=== PATIENT | male | born 1940 | race Caucasian/White ===

== ENCOUNTER 2016-09-12 10:19 | Emergency (ER) | payer OTHER ==
[~2016-09-12] VITALS: Ht 170.2 cm; Wt 72.7 kg
[~2016-09-12 10:19] MED LIST: ALDACTONE25 MG PO; ALDACTONE50 MG PO; ASPIRIN325 MG; ASPIRIN325 MG PO; ATENOLOL50 MG PO; ENDOCET 5-3251 EACH PO; Ecotrin PO; LEVOTHYROXINE112 MCG PO; LIBRIUM25 MG PO; Levothroid,Synthroid PO; Maalox, Mylanta PO; Motrin PO; NEXIUM40 MG PO; NITROGLYCERIN0.4 MG SL; NITROSTAT,NITR0.4 M1 SL; NITROSTAT0.4 MG SL; NORVASC10 M1; NORVASC2.5 MG PO; NORVASC5 MG PO; Normal Saline,NaCl 0 IV; Norvasc PO; PLAVIX75 MG PO; PRILOSEC20 MG PO; PROTONIX40 MG PO; SALINE FLUSH 5 M5 ML IV; ST. JOSEPH ASPI81 MG PO; SYNTHROID112 MCG; TENORMIN100 MG; THERAGRAN1 TABLET PO; THIAMINE,VITAM100 MG PO; Tenormin PO; Tylenol Regular Stre PO; morphine Sulfate IV
[2016-09-12 12:31] VITALS: BP 141/76
== END 2016-09-12 12:33 | disposition home or self-care (01) ==
LOC: EME 10:19
DX: D23.12 Other benign neoplasm of skin of left eyelid, including canthus (principal); I10 Essential (primary) hypertension; I25.2 Old myocardial infarction; K21.9 Gastro-esophageal reflux disease without esophagitis; I25.10 Atherosclerotic heart disease of native coronary artery without angina pectoris; C22.9 Malignant neoplasm of liver, not specified as primary or secondary; Z95.1 Presence of aortocoronary bypass graft; Z98.61 Coronary angioplasty status; Z96.642 Presence of left artificial hip joint; Z87.891 Personal history of nicotine dependence; Z79.82 Long term (current) use of aspirin
CPT/HCPCS: 99281; 99284

== ENCOUNTER 2017-01-16 02:28 | Inpatient (IN) | payer OTHER ==
[2017-01-16] VITALS (16 sets, daily range): BP systolic 114–157; BP diastolic 56–77
[~2017-01-16] VITALS: Ht 170.2 cm; Wt 66.1 kg
[2017-01-16 02:58] LABS: HEMATOCRIT 24.3 % (38.0-50.0); MCH 27.3 PG (29.0-34.0); MCHC 32.1 G/DL (30.0-36.0); MEAN PLAT.VOLUME 9.4 uM^3 (9.0-12.4); PLATELET COUNT 153 K/uL (156-360); RBC DIS.WIDTH-CV 15.2 % (11.8-14.6); RBC DIS.WIDTH-SD 47.4 % (39-53); RED BLOOD COUNT 2.86 M/uL (4.00-5.50); WHITE BLOOD COUNT 4.9 K/uL (4.1-10.2)
[2017-01-16 03:09] LABS: CHLORIDE 112 mEq/L (99-109); SODIUM 137 mEq/L (136-147)
[2017-01-16 03:10] LABS: GLUCOSE 100 mg/dL (70-99)
[2017-01-16 03:12] LABS: ANION GAP 7 MEQ/L (2-14)
[2017-01-16 03:14] LABS: GFR ESTIMATE (CALCULATED) 42 mL/min/
[2017-01-16 03:15] LABS: UREA NITROGEN (BUN) 24 mg/dL (9-23)
[2017-01-16 03:23] LABS: TROP-I INTERPRETATION NEGATIVE; TROPONIN-I 0.02 ng/mL (0.0-0.30)
[2017-01-16] MEDS ORDERED: ROSUVASTATIN CAL5 MG PO (04:37)
[2017-01-16] MEDS ORDERED: IMDUR30 MG PO (04:41)
[2017-01-16] MEDS ORDERED: FUROSEMIDE20 MG PO (04:42)
[2017-01-16 04:46] LABS: TOTAL BILIRUBIN 0.9 mg/dL (0.0-1.0)
[2017-01-16 04:47] LABS: ALKALINE PHOSPHATASE 89 IU/L (3-129)
[2017-01-16 04:49] LABS: DIRECT BILIRUBIN 0.5 mg/dL (0.0-0.3)
[2017-01-16 04:55] LABS: INTER. NORMALIZED RATIO 1.3; PROTHROMBIN TIME 13.2 (9.2-11.2); PTT 29.5 (25-32)
[2017-01-16 11:12] LABS: HDL CHOLESTEROL 19 MG/DL (Desirable>=40); LDL CHOLESTEROL 48 mg/dL (Desirable<100); NON-HDL CHOLESTEROL 63 mg/dL (Desirable<160); TOTAL CHOLESTEROL 82 mg/dL (Desirable<200); TRIGLYCERIDES 74 MG/DL (Normal: <150); TROP-I INTERPRETATION NEGATIVE; TROPONIN-I 0.03 ng/mL (0.0-0.30)
[2017-01-16 15:30] LABS: TROP-I INTERPRETATION NEGATIVE; TROPONIN-I 0.04 ng/mL (0.0-0.30)
[2017-01-16 20:04] LABS: HEMATOCRIT 31.2 % (38.0-50.0); MCV 84.3 FL (86-99)
[2017-01-17] VITALS (10 sets, daily range): BP systolic 94–161; BP diastolic 50–70
[2017-01-17 08:15] LABS: HEMATOCRIT 33.1 % (38.0-50.0); MCV 85.1 FL (86-99)
[2017-01-17 08:39] LABS: ANION GAP 8 MEQ/L (2-14); CHLORIDE 107 MEQ/L (99-109); GFR ESTIMATE (CALCULATED) 45 mL/min/; GLUCOSE 92 mg/dL (70-99); POTASSIUM 3.7 MEQ/L (3.7-5.4); SAMPLE HEMOLYSIS CHECK 0; SAMPLE ICTERIC CHECK 0; SAMPLE LIPEMIA CHECK 0; SODIUM 135 MEQ/L (136-147); UREA NITROGEN (BUN) 24 mg/dL (9-23)
[2017-01-17 20:06] LABS: HEMATOCRIT 33.4 % (38.0-50.0); MCV 84.8 FL (86-99)
[2017-01-18 05:32] VITALS: BP 106/57
[2017-01-18 07:20] VITALS: BP 117/57
[2017-01-18 07:46] LABS: HEMATOCRIT 31.2 % (38.0-50.0); MCH 28.1 PG (29.0-34.0); MCV 85.2 FL (86-99); MEAN PLAT.VOLUME 9.6 uM^3 (9.0-12.4); PLATELET COUNT 154 K/uL (156-360); RBC DIS.WIDTH-CV 14.7 % (11.8-14.6); RBC DIS.WIDTH-SD 46.1 % (39-53); WHITE BLOOD COUNT 4.1 K/uL (4.1-10.2)
[2017-01-18 07:54] LABS: RED BLOOD COUNT 3.66 M/uL (4.00-5.50)
[2017-01-18 08:21] LABS: ANION GAP 7 MEQ/L (2-14); CHLORIDE 107 MEQ/L (99-109); GFR ESTIMATE (CALCULATED) 45 mL/min/; GLUCOSE 80 mg/dL (70-99); POTASSIUM 3.6 MEQ/L (3.7-5.4); SAMPLE HEMOLYSIS CHECK 0; SAMPLE ICTERIC CHECK 0; SAMPLE LIPEMIA CHECK 0; SODIUM 136 MEQ/L (136-147); UREA NITROGEN (BUN) 24 mg/dL (9-23)
[2017-01-18 09:50] LABS: POC NON-PRINT COM 1 ND
[2017-01-18 11:34] VITALS: BP 132/63
[2017-01-18 15:15] VITALS: BP 162/70
[2017-01-18 20:15] VITALS: BP 140/64
[2017-01-19 01:09] VITALS: BP 102/50
[2017-01-19 05:43] VITALS: BP 116/56
[2017-01-19 08:06] VITALS: BP 111/64
[2017-01-19] MEDS ORDERED: IMDUR30 MG PO (08:46)
[2017-01-19] MEDS ORDERED: PRILOSEC20 MG PO (08:47)
[2017-01-19] MEDS ORDERED: NADOLOL40 MG PO (13:24)
[2017-01-19] MEDS ORDERED: PROTONIX40 MG PO (13:25)
== END 2017-01-19 14:18 | disposition home or self-care (01) | DRG 369 ==
LOC: EME 02:28 → EDOF 03:33 → 4EAST 04:19 → EDOF 04:19 → 4EAST 06:26
PROVIDERS: Emergency Medicine; Internal Medicine; Physician Assistant Medical
PROC: 30233N1 Transfusion of Nonautologous Red Blood Cells into Peripheral Vein, Percutaneous Approach (ICD-10-PCS; principal; 2017-01-16)
PROC: 06L34CZ Occlusion of Esophageal Vein with Extraluminal Device, Percutaneous Endoscopic Approach (ICD-10-PCS; 2017-01-18)
DX: I85.01 Esophageal varices with bleeding (principal); I25.110 Atherosclerotic heart disease of native coronary artery with unstable angina pectoris; D62 Acute posthemorrhagic anemia; I24.9 Acute ischemic heart disease, unspecified; I50.22 Chronic systolic (congestive) heart failure; E11.22 Type 2 diabetes mellitus with diabetic chronic kidney disease; N17.9 Acute kidney failure, unspecified; R07.9 Chest pain, unspecified; E24.9 Cushing's syndrome, unspecified; C22.0 Liver cell carcinoma; B19.20 Unspecified viral hepatitis C without hepatic coma; I71.4 Abdominal aortic aneurysm, without rupture; I10 Essential (primary) hypertension; E78.5 Hyperlipidemia, unspecified; K21.9 Gastro-esophageal reflux disease without esophagitis; E03.9 Hypothyroidism, unspecified; I12.9 Hypertensive chronic kidney disease with stage 1 through stage 4 chronic kidney disease, or unspecified chronic kidney disease; N18.3 Chronic kidney disease, stage 3 (moderate); K44.9 Diaphragmatic hernia without obstruction or gangrene; I25.2 Old myocardial infarction; Z95.1 Presence of aortocoronary bypass graft; Z90.49 Acquired absence of other specified parts of digestive tract; Z95.5 Presence of coronary angioplasty implant and graft; Z79.01 Long term (current) use of anticoagulants; Z87.891 Personal history of nicotine dependence; Z85.05 Personal history of malignant neoplasm of liver
CPT/HCPCS: 36600; 71020; 74230; 80048; 80061; 80076; 82272; 82803; 83880; 84484; 85014; 85018; 85027; 85610; 85730; 86900; 86901; 86920; 92611 GN; 93005; 99281; 99285; C9113; J1940; P9016

== ENCOUNTER → 2017-03-02 | Outpatient (CLI) | payer OTHER ==
[~2017-03-02] VITALS: Ht 170.2 cm; Wt 56.2 kg
[~2017-03-02] MED LIST changes: +CORGARD40 MG PO; +FUROSEMIDE20 MG PO; +IMDUR30 MG PO; +LASIX20 MG PO; +LEVO-T112 MCG PO; +NADOLOL40 MG PO; +ROSUVASTATIN CAL5 MG PO
[2017-03-02 09:59] LABS: BASOPHIL COUNT 0.1 K/uL (0-0.1); EOSINOPHIL (%) 5.9 % (0-5); EOSINOPHIL COUNT 0.4 K/uL (0-0.3); HEMATOCRIT 31.2 % (38.0-50.0); IMMATURE GRANULOCYTE (%) 0.2 % (0.0-0.7); INSTRUMENT ABS NEUTROPHIL CT 2.9 K/uL; LYMPHOCYTE COUNT 1.8 K/uL (1.0-2.8); MCH 28.3 PG (29.0-34.0); MCV 85.7 FL (86-99); MEAN PLAT.VOLUME 9.3 uM^3 (9.0-12.4); MONOCYTE (%) 14.6 % (3-12); MONOCYTE COUNT 0.9 K/uL (0-0.8); NEUTROPHIL COUNT 2.9 K/uL (1.8-6.4); PLATELET COUNT 179 K/uL (156-360); RBC DIS.WIDTH-CV 15.6 % (11.8-14.6); RBC DIS.WIDTH-SD 48.9 % (39-53); RED BLOOD COUNT 3.64 M/uL (4.00-5.50)
[2017-03-02 10:10] LABS: INTER. NORMALIZED RATIO 1.2; PROTHROMBIN TIME 12.6 (9.2-11.2); PTT 30.3 (25-32)
== END | disposition home or self-care (01) ==
LOC: AMB 09:31
PROVIDERS: Anesthesiology
PROC: 0DJ08ZZ Inspection of Upper Intestinal Tract, Via Natural or Artificial Opening Endoscopic (ICD-10-PCS; principal; 2017-03-02)
DX: I85.00 Esophageal varices without bleeding (principal); C22.9 Malignant neoplasm of liver, not specified as primary or secondary; B19.20 Unspecified viral hepatitis C without hepatic coma; J44.9 Chronic obstructive pulmonary disease, unspecified; Z79.02 Long term (current) use of antithrombotics/antiplatelets; Z95.1 Presence of aortocoronary bypass graft; Z79.82 Long term (current) use of aspirin; Z82.49 Family history of ischemic heart disease and other diseases of the circulatory system; Z83.3 Family history of diabetes mellitus; Z87.891 Personal history of nicotine dependence
CPT/HCPCS: 85025; 85610; 85730; 93005

== ENCOUNTER 2017-05-15 15:08 | Observation (INO) | payer OTHER ==
[~2017-05-15] VITALS: Ht 172.7 cm; Wt 64.5 kg
[2017-05-15 16:09] LABS: HEMATOCRIT 23.4 % (38.0-50.0); MCH 27.5 PG (29.0-34.0); MCHC 32.9 G/DL (30.0-36.0); MCV 83.6 FL (86-99); MEAN PLAT.VOLUME 9.7 uM^3 (9.0-12.4); PLATELET COUNT 133 K/uL (156-360); RBC DIS.WIDTH-CV 16.2 % (11.8-14.6); RBC DIS.WIDTH-SD 49.1 % (39-53)
[2017-05-15 16:19] LABS: CHLORIDE 112 mEq/L (99-109); POTASSIUM 3.7 mEq/L (3.7-5.4); SODIUM 139 mEq/L (136-147)
[2017-05-15 16:20] LABS: GLUCOSE 112 mg/dL (70-99)
[2017-05-15 16:22] LABS: ANION GAP 9 MEQ/L (2-14)
[2017-05-15 16:24] LABS: GFR ESTIMATE (CALCULATED) 57 mL/min/
[2017-05-15 16:25] LABS: UREA NITROGEN (BUN) 21 mg/dL (9-23)
[2017-05-15 16:29] LABS: TROP-I INTERPRETATION NEGATIVE; TROPONIN-I 0.03 ng/mL (0.0-0.30)
[2017-05-15] MEDS ORDERED: PRILOSEC20 MG PO (18:51)
[2017-05-15] MEDS ORDERED: LORAZEPAM0.5 MG PO (18:51)
[2017-05-15] MEDS ORDERED: COLACE100 MG PO (18:51)
[2017-05-15 22:20] VITALS: BP 131/69
[2017-05-16] VITALS (11 sets, daily range): BP systolic 96–165; BP diastolic 55–73
[2017-05-16 00:53] LABS: TROP-I INTERPRETATION NEGATIVE; TROPONIN-I 0.04 ng/mL (0.0-0.30)
[2017-05-16 05:59] LABS: TROP-I INTERPRETATION NEGATIVE; TROPONIN-I 0.03 ng/mL (0.0-0.30)
[2017-05-16 06:03] LABS: ANION GAP 7 MEQ/L (2-14); CHLORIDE 108 MEQ/L (99-109); GFR ESTIMATE (CALCULATED) > 59 mL/min/; GLUCOSE 97 mg/dL (70-99); SAMPLE HEMOLYSIS CHECK 0; SAMPLE ICTERIC CHECK 0; SAMPLE LIPEMIA CHECK 0; SODIUM 137 MEQ/L (136-147); UREA NITROGEN (BUN) 17 mg/dL (9-23)
[2017-05-16 13:03] LABS: HEMATOCRIT 35.5 % (38.0-50.0); MCH 28.8 PG (29.0-34.0); MCHC 33.8 G/DL (30.0-36.0); MCV 85.3 FL (86-99); MEAN PLAT.VOLUME 9.5 uM^3 (9.0-12.4); PLATELET COUNT 159 K/uL (156-360); RBC DIS.WIDTH-CV 15.8 % (11.8-14.6); RBC DIS.WIDTH-SD 48.5 % (39-53); WHITE BLOOD COUNT 5.9 K/uL (4.1-10.2)
[2017-05-16 13:04] LABS: RED BLOOD COUNT 4.16 M/uL (4.00-5.50)
== END 2017-05-16 15:52 | disposition home or self-care (01) ==
LOC: EME 15:08 → 5WEST 20:46 → EDOF 20:46 → ENRESERV 20:47 → 5WEST 21:57
PROVIDERS: Emergency Medicine; Hospitalist
PROC: 30253N1 (ICD-10-PCS; principal; 2017-05-15)
DX: R07.9 Chest pain, unspecified (principal); D64.9 Anemia, unspecified; I13.0 Hypertensive heart and chronic kidney disease with heart failure and stage 1 through stage 4 chronic kidney disease, or unspecified chronic kidney disease; I50.22 Chronic systolic (congestive) heart failure; N18.3 Chronic kidney disease, stage 3 (moderate); C22.0 Liver cell carcinoma; I25.10 Atherosclerotic heart disease of native coronary artery without angina pectoris; B19.20 Unspecified viral hepatitis C without hepatic coma; Z87.19 Personal history of other diseases of the digestive system; Z92.21 Personal history of antineoplastic chemotherapy; I25.2 Old myocardial infarction; I71.4 Abdominal aortic aneurysm, without rupture; E78.5 Hyperlipidemia, unspecified; E24.9 Cushing's syndrome, unspecified; K21.9 Gastro-esophageal reflux disease without esophagitis; E03.9 Hypothyroidism, unspecified; Z95.5 Presence of coronary angioplasty implant and graft; Z98.890 Other specified postprocedural states; I70.1 Atherosclerosis of renal artery; Z90.49 Acquired absence of other specified parts of digestive tract; Z79.82 Long term (current) use of aspirin; Z87.891 Personal history of nicotine dependence; Z82.49 Family history of ischemic heart disease and other diseases of the circulatory system; Z88.8 Allergy status to other drugs, medicaments and biological substances
CPT/HCPCS: 71010; 80048; 84484; 85027; 86850; 86900; 86901; 86920; 93005; 99281; 99285; C9113; G0378; J1650; J1940; J2270; J2354; P9016

== ENCOUNTER 2017-06-22 19:30 | Inpatient (IN) | payer OTHER ==
[~2017-06-22] VITALS: Ht 170.2 cm; Wt 63.4 kg
[~2017-06-22 19:30] MED LIST changes: +COLACE100 MG PO; +LEVO-T100 MCG PO; -LEVO-T112 MCG PO; +LORAZEPAM0.5 MG PO; +OXAYDO5 MG PO
[2017-06-22 20:51] LABS: HEMATOCRIT 32.8 % (38.0-50.0); MCH 28.8 PG (29.0-34.0); MCHC 33.2 G/DL (30.0-36.0); MCV 86.5 FL (86-99); MEAN PLAT.VOLUME 9.9 uM^3 (9.0-12.4); PLATELET COUNT 163 K/uL (156-360); RBC DIS.WIDTH-CV 16.6 % (11.8-14.6); RBC DIS.WIDTH-SD 52.4 % (39-53); RED BLOOD COUNT 3.79 M/uL (4.00-5.50); WHITE BLOOD COUNT 12.9 K/uL (4.1-10.2)
[2017-06-22 21:03] LABS: CHLORIDE 108 mEq/L (99-109); POTASSIUM 3.7 mEq/L (3.7-5.4); SODIUM 135 mEq/L (136-147)
[2017-06-22 21:05] LABS: GLUCOSE 121 mg/dL (70-99)
[2017-06-22 21:07] LABS: ANION GAP 9 MEQ/L (2-14)
[2017-06-22 21:09] LABS: GFR ESTIMATE (CALCULATED) 48 mL/min/
[2017-06-22 21:10] LABS: UREA NITROGEN (BUN) 21 mg/dL (9-23)
[2017-06-22 21:18] LABS: TROP-I INTERPRETATION NEGATIVE; TROPONIN-I 0.04 ng/mL (0.0-0.30)
[2017-06-22 22:23] LABS: INFLUENZA A VIRAL ANTIGEN NEGATIVE; INFLUENZA B VIRAL ANTIGEN NEGATIVE
[2017-06-22] MEDS ORDERED: ASPERCREME 1035.4 GM TP (22:56)
[2017-06-23 00:46] LABS: ADD MIUA? YES; BILIRUBIN NEGATIVE; BLOOD SMALL; COLOR YELLOW ((YELLOW)); GLUCOSE (STRIP) NEGATIVE; KETONES NEGATIVE; LEUKOCYTES NEGATIVE; NITRITE NEGATIVE; PROTEIN (STRIP) 100; SPECIFIC GRAVITY 1.023 (1.000-1.030)
[2017-06-23 00:53] LABS: BACTERIA NONE SEEN /HPF; EPITHELIAL CELLS RARE /HPF; MUCUS TRACE /LPF; WHITE BLOOD CELLS 0-5 /HPF (0-5)
[2017-06-23 01:37] VITALS: BP 109/59
[2017-06-23 06:20] LABS: EOSINOPHIL (%) 1.4 % (0-5); EOSINOPHIL COUNT 0.2 K/uL (0-0.3); HEMATOCRIT 25.5 % (38.0-50.0); IMMATURE GRANULOCYTE (%) 0.3 % (0.0-0.7); INSTRUMENT ABS NEUTROPHIL CT 8.3 K/uL; LYMPHOCYTE COUNT 2.2 K/uL (1.0-2.8); MCH 29.1 PG (29.0-34.0); MCHC 33.3 G/DL (30.0-36.0); MCV 87.3 FL (86-99); MEAN PLAT.VOLUME 9.8 uM^3 (9.0-12.4); MONOCYTE (%) 7.8 % (3-12); MONOCYTE COUNT 0.9 K/uL (0-0.8); NEUTROPHIL (%) 71.2 % (45-76); NEUTROPHIL COUNT 8.3 K/uL (1.8-6.4); PLATELET COUNT 117 K/uL (156-360); RBC DIS.WIDTH-CV 16.8 % (11.8-14.6); RBC DIS.WIDTH-SD 53.6 % (39-53); TROP-I INTERPRETATION NEGATIVE; TROPONIN-I 0.07 ng/mL (0.0-0.30); WHITE BLOOD COUNT 11.7 K/uL (4.1-10.2)
[2017-06-23 06:27] LABS: RED BLOOD COUNT 2.92 M/uL (4.00-5.50)
[2017-06-23 06:30] LABS: ALKALINE PHOSPHATASE 67 IU/L (3-129); ANION GAP 8 MEQ/L (2-14); CHLORIDE 110 MEQ/L (99-109); GFR ESTIMATE (CALCULATED) 57 mL/min/; MAGNESIUM 1.5 mg/dl (1.3-2.7); POTASSIUM 3.6 MEQ/L (3.7-5.4); SAMPLE HEMOLYSIS CHECK 0; SAMPLE ICTERIC CHECK 0; SAMPLE LIPEMIA CHECK 0; SODIUM 137 MEQ/L (136-147); TOTAL BILIRUBIN 1.4 MG/DL (0.0-1.0); UREA NITROGEN (BUN) 22 mg/dL (9-23)
[2017-06-23 06:34] LABS: GLUCOSE 85 mg/dL (70-99)
[2017-06-23 07:49] VITALS: BP 121/61
[2017-06-23 12:17] VITALS: BP 127/60
[2017-06-23 15:16] VITALS: BP 109/57
[2017-06-23 22:18] VITALS: BP 116/59
[2017-06-24 00:28] VITALS: BP 118/63
[2017-06-24 04:20] VITALS: BP 116/59
[2017-06-24 05:35] LABS: HEMATOCRIT 25.6 % (38.0-50.0); MCH 28.6 PG (29.0-34.0); MCHC 32.8 G/DL (30.0-36.0); MCV 87.1 FL (86-99); MEAN PLAT.VOLUME 9.6 uM^3 (9.0-12.4); PLATELET COUNT 112 K/uL (156-360); RBC DIS.WIDTH-CV 16.7 % (11.8-14.6); RBC DIS.WIDTH-SD 53.3 % (39-53); RED BLOOD COUNT 2.94 M/uL (4.00-5.50); WHITE BLOOD COUNT 6.6 K/uL (4.1-10.2)
[2017-06-24 06:02] LABS: ANION GAP 7 MEQ/L (2-14); CHLORIDE 109 MEQ/L (99-109); GFR ESTIMATE (CALCULATED) > 59 mL/min/; GLUCOSE 80 mg/dL (70-99); POTASSIUM 3.4 MEQ/L (3.7-5.4); SAMPLE HEMOLYSIS CHECK 0; SAMPLE ICTERIC CHECK 0; SAMPLE LIPEMIA CHECK 0; SODIUM 135 MEQ/L (136-147); UREA NITROGEN (BUN) 18 mg/dL (9-23)
[2017-06-24 07:36] VITALS: BP 166/74
[2017-06-24] MEDS ORDERED: ACIDOPHILUS LA1 EAC1 PO (13:06)
[2017-06-24] MEDS ORDERED: AUGMENTIN875 MG PO (13:06)
== END 2017-06-24 14:06 | disposition home or self-care (01) | DRG 205 ==
LOC: EME 19:30 → EDOF 23:57 → 5EAST 23:57 → ENRESERV 06-23 → 5EAST 06-23 01:24
PROVIDERS: Family Medicine; Physician Assistant Medical
DX: J95.89 Other postprocedural complications and disorders of respiratory system, not elsewhere classified (principal); J69.0 Pneumonitis due to inhalation of food and vomit; A41.9 Sepsis, unspecified organism; I25.10 Atherosclerotic heart disease of native coronary artery without angina pectoris; Y92.239 Unspecified place in hospital as the place of occurrence of the external cause; Y83.8 Other surgical procedures as the cause of abnormal reaction of the patient, or of later complication, without mention of misadventure at the time of the procedure; G89.29 Other chronic pain; I50.9 Heart failure, unspecified; I11.0 Hypertensive heart disease with heart failure; Z95.5 Presence of coronary angioplasty implant and graft; I25.2 Old myocardial infarction; E78.5 Hyperlipidemia, unspecified; K21.9 Gastro-esophageal reflux disease without esophagitis; E03.9 Hypothyroidism, unspecified; E24.9 Cushing's syndrome, unspecified; Z96.642 Presence of left artificial hip joint; M19.90 Unspecified osteoarthritis, unspecified site; Z87.891 Personal history of nicotine dependence; E87.2 Acidosis; C22.0 Liver cell carcinoma; I73.9 Peripheral vascular disease, unspecified; D64.9 Anemia, unspecified; F03.90 Unspecified dementia, unspecified severity, without behavioral disturbance, psychotic disturbance, mood disturbance, and anxiety; J98.11 Atelectasis; K59.00 Constipation, unspecified; I71.4 Abdominal aortic aneurysm, without rupture; K74.69 Other cirrhosis of liver; B18.2 Chronic viral hepatitis C
CPT/HCPCS: 70450; 71020; 74176; 80048; 80053; 81003; 83605; 83690; 83735; 84100; 84484; 85025; 85027; 87040; 87502; 93005; 99281; 99285; J0295; J1956; J2543; J3370; J7030; J7040; J7050; J7120

== ENCOUNTER 2017-08-01 18:07 | Inpatient (IN) | payer OTHER ==
[~2017-08-01] VITALS: Ht 170.2 cm; Wt 59.0 kg
[~2017-08-01 18:07] MED LIST changes: +ACIDOPHILUS LA1 EAC1 PO; +ASPERCREME 1035.4 GM TP; +AUGMENTIN875 MG PO
[2017-08-01 18:47] LABS: HEMATOCRIT 36.1 % (38.0-50.0); MCH 28.1 PG (29.0-34.0); MCHC 32.7 G/DL (30.0-36.0); PLATELET COUNT 157 K/uL (156-360); RBC DIS.WIDTH-CV 15.9 % (11.8-14.6); RBC DIS.WIDTH-SD 49.1 % (39-53); WHITE BLOOD COUNT 7.6 K/uL (4.1-10.2)
[2017-08-01 18:58] LABS: CHLORIDE 103 mEq/L (99-109); POTASSIUM 3.7 mEq/L (3.7-5.4); SODIUM 133 mEq/L (136-147)
[2017-08-01 19:00] LABS: GLUCOSE 98 mg/dL (70-99)
[2017-08-01 19:01] LABS: ANION GAP 7 MEQ/L (2-14)
[2017-08-01 19:04] LABS: GFR ESTIMATE (CALCULATED) > 59 mL/min/ (58.99-99999)
[2017-08-01 19:05] LABS: UREA NITROGEN (BUN) 12 mg/dL (9-23)
[2017-08-01] MEDS ORDERED: FENTANYL1 EAC4 TD (21:39)
[2017-08-01] MEDS ORDERED: MIRTAZAPINE7.5 MG PO (21:39)
[2017-08-02] VITALS (8 sets, daily range): BP systolic 132–194; BP diastolic 61–82
[2017-08-02 00:49] LABS: ADD MIUA? YES; BILIRUBIN NEGATIVE; BLOOD SMALL; COLOR YELLOW ((YELLOW)); GLUCOSE (STRIP) NEGATIVE; KETONES 5; LEUKOCYTES NEGATIVE; NITRITE NEGATIVE; PROTEIN (STRIP) 100; SPECIFIC GRAVITY 1.017 (1.000-1.030)
[2017-08-02 00:55] LABS: BACTERIA NONE SEEN /HPF; EPITHELIAL CELLS NONE SEEN /HPF; MUCUS TRACE /LPF; UCUL ADDED? NO; WHITE BLOOD CELLS 0-5 /HPF (0-5)
[2017-08-02 01:24] LABS: TROP-I INTERPRETATION NEGATIVE; TROPONIN-I 0.03 ng/mL (0.0-0.30)
[2017-08-02 05:28] LABS: HEMATOCRIT 30.7 % (38.0-50.0); MCH 27.5 PG (29.0-34.0); MCHC 32.9 G/DL (30.0-36.0); MCV 83.7 FL (86-99); MEAN PLAT.VOLUME 9.1 uM^3 (9.0-12.4); PLATELET COUNT 121 K/uL (156-360); RBC DIS.WIDTH-CV 15.8 % (11.8-14.6); RBC DIS.WIDTH-SD 47.7 % (39-53); RED BLOOD COUNT 3.67 M/uL (4.00-5.50); WHITE BLOOD COUNT 6.3 K/uL (4.1-10.2)
[2017-08-02 05:31] LABS: INTER. NORMALIZED RATIO 1.4; PROTHROMBIN TIME 15.7 SEC (10.2-12.9)
[2017-08-02 05:34] LABS: PTT 32.7 SEC (25-37)
[2017-08-02 05:42] LABS: CHLORIDE 106 mEq/L (99-109); POTASSIUM 3.6 mEq/L (3.7-5.4); SODIUM 134 mEq/L (136-147)
[2017-08-02 05:43] LABS: GLUCOSE 98 mg/dL (70-99)
[2017-08-02 05:45] LABS: ANION GAP 7 MEQ/L (2-14)
[2017-08-02 05:47] LABS: GFR ESTIMATE (CALCULATED) > 59 mL/min/ (58.99-99999)
[2017-08-02 05:48] LABS: TROP-I INTERPRETATION NEGATIVE; TROPONIN-I 0.03 ng/mL (0.0-0.30); UREA NITROGEN (BUN) 12 mg/dL (9-23)
[2017-08-02 12:33] LABS: TROP-I INTERPRETATION NEGATIVE; TROPONIN-I 0.02 ng/mL (0.0-0.30)
[2017-08-03 00:31] VITALS: BP 138/67
[2017-08-03 03:57] VITALS: BP 151/71
[2017-08-03 06:49] LABS: ALKALINE PHOSPHATASE 61 IU/L (3-129); ANION GAP 8 MEQ/L (2-14); CHLORIDE 104 MEQ/L (99-109); GFR ESTIMATE (CALCULATED) > 59 mL/min/ (58.99-99999); GLUCOSE 84 mg/dL (70-99); POTASSIUM 3.5 MEQ/L (3.7-5.4); SAMPLE HEMOLYSIS CHECK 0; SAMPLE ICTERIC CHECK 0; SAMPLE LIPEMIA CHECK 0; SODIUM 134 MEQ/L (136-147); TOTAL BILIRUBIN 1.4 MG/DL (0.0-1.0); UREA NITROGEN (BUN) 13 mg/dL (9-23)
[2017-08-03 07:45] VITALS: BP 149/71
[2017-08-03 12:07] VITALS: BP 135/69
[2017-08-03 16:24] VITALS: BP 157/71
[2017-08-03 17:29] LABS: BASOPHIL COUNT 0.1 K/uL (0-0.1); EOSINOPHIL (%) 9.4 % (0-5); EOSINOPHIL COUNT 0.6 K/uL (0-0.3); IMMATURE GRANULOCYTE (%) 0.3 % (0.0-0.7); INSTRUMENT ABS NEUTROPHIL CT 2.9 K/uL; LYMPHOCYTE COUNT 1.6 K/uL (1.0-2.8); MCH 27.1 PG (29.0-34.0); MCHC 32.3 G/DL (30.0-36.0); MEAN PLAT.VOLUME 9.2 uM^3 (9.0-12.4); MONOCYTE (%) 13.4 % (3-12); MONOCYTE COUNT 0.8 K/uL (0-0.8); NEUTROPHIL (%) 48.3 % (45-76); NEUTROPHIL COUNT 2.9 K/uL (1.8-6.4); PLATELET COUNT 141 K/uL (156-360); RBC DIS.WIDTH-CV 15.8 % (11.8-14.6); RBC DIS.WIDTH-SD 47.9 % (39-53); RED BLOOD COUNT 3.69 M/uL (4.00-5.50)
[2017-08-03 19:22] VITALS: BP 135/75
[2017-08-04 00:02] VITALS: BP 160/85
[2017-08-04 04:07] VITALS: BP 175/81
[2017-08-04 08:00] VITALS: BP 163/79
[2017-08-04 12:00] VITALS: BP 154/79
[2017-08-04 16:00] VITALS: BP 153/80
[2017-08-04 19:26] VITALS: BP 163/72
[2017-08-05 00:15] VITALS: BP 176/72
[2017-08-05 03:54] VITALS: BP 190/92
[2017-08-05 07:13] VITALS: BP 142/70
== END 2017-08-05 15:45 | disposition hospice, home (50) | DRG 442 ==
LOC: EME 18:07 → EDOF 21:48 → 4EAST 21:48 → ENRESERV 21:55 → 4EAST 08-02 00:08 → ENRESERV 08-02 16:54 → 5SOUTH 08-02 21:49
PROVIDERS: Hospitalist; Student in an Organized Health Care Education/Training Program
DX: K72.90 Hepatic failure, unspecified without coma (principal); I85.00 Esophageal varices without bleeding; C22.0 Liver cell carcinoma; C79.9 Secondary malignant neoplasm of unspecified site; B18.2 Chronic viral hepatitis C; I25.2 Old myocardial infarction; I50.9 Heart failure, unspecified; I11.0 Hypertensive heart disease with heart failure; I25.10 Atherosclerotic heart disease of native coronary artery without angina pectoris; E03.9 Hypothyroidism, unspecified; E78.5 Hyperlipidemia, unspecified; J44.9 Chronic obstructive pulmonary disease, unspecified; K21.9 Gastro-esophageal reflux disease without esophagitis; I71.4 Abdominal aortic aneurysm, without rupture; K74.60 Unspecified cirrhosis of liver; Z96.642 Presence of left artificial hip joint; Z95.1 Presence of aortocoronary bypass graft; Z95.5 Presence of coronary angioplasty implant and graft; Z87.891 Personal history of nicotine dependence; F43.20 Adjustment disorder, unspecified
CPT/HCPCS: 70450; 71020; 76705; 80048; 80053; 81003; 82140; 84484; 85025; 85027; 85610; 85730; 93005; 99281; 99285; J1644; J7030